=== PATIENT | male | born 1995 | race Caucasian/White ===

== ENCOUNTER 2017-03-06 15:11 | Emergency (ER) | payer BC ==
[~2017-03-06] VITALS: Ht 177.8 cm; Wt 85.9 kg
[2017-03-06 15:15] VITALS: BP 125/75; PULSE 109; TEMP 99.1
[2017-03-06] MEDS ORDERED: PREDNISONE20 MG PO (15:18)
[2017-03-06] MEDS ORDERED: OMNICEF 300MG300 MG PO (15:19)
== END 2017-03-06 15:54 | disposition home or self-care (01) ==
LOC: COL.ER 15:11
DX: J02.9 Acute pharyngitis, unspecified (principal)